=== PATIENT | female | born 1950 | race Caucasian/White ===

== ENCOUNTER 2018-03-11 18:57 | Emergency (ER) | payer MEDICARE ==
[2018-03-11 19:07] VITALS: PULSE 77
--- NOTE | 2018-03-11 19:29 | ED ---
General Adult HPI - General Chief complaint: Fall Stated complaint: Fall Time Seen by Provider: 03/11/18 19:17 Source: patient, family, EMS, RN notes reviewed Mode of arrival: EMS Limitations: no limitations - History of Present Illness Initial comments: Patient is a pleasant 68-year-old female presenting to the emergency department following a fall. Patient was Sitting half standing on a golf cart trying to hold a large flotation device. Patient did fall off the back. Low speed. Patient did strike the back of her head and did lose consciousness for between 1 and 3 minutes. Patient does complain of headache. Patient complains more of discomfort of her left small finger. No neck or back pain. No chest pain or dyspnea. No abdominal pain. Last tetanus immunization was less than 10 years ago. Patient denies taking any anticoagulants. - Related Data Home Medications Medication Instructions Recorded Confirmed HYDROmorphone [Dilaudid] 2 mg PO Q4H PRN 04/17/14 04/17/14 Previous Rx's Medication Instructions Recorded Famotidine [Pepcid] 20 mg PO BID #30 tablet 04/17/14 Metoclopramide HCl [Reglan] 10 mg PO Q6HR PRN #15 tablet 04/17/14 Allergies Allergy/AdvReac Type Severity Reaction Status Date / Time codeine Allergy Nausea & Verified 03/11/18 19:06 Vomiting Review of Systems ROS Statement: Those systems with pertinent positive or pertinent negative responses have been documented in the HPI. ROS Other: All systems not noted in ROS Statement are negative. Constitutional: Denies: fever Eyes: Denies: eye pain ENT: Denies: ear pain Respiratory: Denies: cough, dyspnea Cardiovascular: Denies: chest pain, palpitations Endocrine: Denies: fatigue Gastrointestinal: Denies: abdominal pain Genitourinary: Denies: dysuria Musculoskeletal: Denies: back pain Skin: Denies: rash Neurological: Reports: headache. Denies: weakness, confusion Past Medical History Past Medical History: Hyperlipidemia, Hypertension Additional Past Medical History / Comment(s): shingles History of Any Multi-Drug Resistant Organisms: None Reported Past Surgical History: Appendectomy, Hysterectomy Past Psychological History: No Psychological Hx Reported Smoking Status: Current some day smoker Past Alcohol Use History: None Reported Past Drug Use History: None Reported General Exam Limitations: no limitations General appearance: alert, in no apparent distress Head exam: Present: other (Laceration of posterior scalp) Eye exam: Present: normal appearance, PERRL, EOMI. Absent: nystagmus ENT exam: Present: normal oropharynx Neck exam: Present: normal inspection, full ROM. Absent: tenderness Respiratory exam: Present: normal lung sounds bilaterally Cardiovascular Exam: Present: regular rate, normal rhythm GI/Abdominal exam: Present: soft. Absent: distended, tenderness, guarding, rebound, rigid Extremities exam: Present: other (Tenderness and swelling left small finger. Patient has difficulty with full flexion secondary to discomfort.) Back exam: Present: normal inspection. Absent: tenderness, vertebral tenderness Neurological exam: Present: alert, CN II-XII intact. Absent: motor sensory deficit Expanded Neurological exam: Present: protecting the airway Speech: Present: fluid speech Cranial nerves: EOM's Intact: Normal Sensory exam: Upper Extremity Light Touch: Normal, Lower Extremity Light Touch: Normal Motor strength exam: RUE: 5, LUE: 5, RLE: 5, LLE: 5 Eye Response: (4) open spontaneously Motor Response: (6) obeys commands Verbal Response: (5) oriented Psychiatric exam: Present: normal affect, normal mood Skin exam: Present: normal color, abrasion (Posterior scalp and left small finger) Course Vital Signs 03/11/18 19:01 Temperature 98.5 F Pulse Rate 77 Respiratory 20 Rate Blood Pressure 211/95 O2 Sat by Pulse 99 Oximetry EKG Findings - EKG Comments: EKG Findings:: Sinus rhythm at 76. SC 146. QRS 94. QT 400. QTc 450. Normal axis. Normal QRS. No acute ST change. Procedures - Laceration Laceration #1 Consent Obtained: verbal consent Time Out Performed: Yes Indication: laceration Site: scalp Size (cm): 4 Depth: simple, single layer Pre-repair: wound explored, irrigated extensively Type of Sutures: other (Tabatha) Number of Sutures: 7 Patient Tolerated Procedure: well, no complications Medical Decision Making - Medical Decision Making Patient reevaluated and resting comfortably in bed. Patient still alert and oriented 3. Family states that patient did repeat questions earlier. Otherwise patient has no evidence of neurological deficit. Patient refuses Tylenol. - Radiology Data Radiology results: report reviewed (Computed tomography scan of the brain shows no acute intercranial abnormality. There is parietal scalp contusion/hematoma.) , image reviewed (X-ray does show fracture of the small finger left proximal phalanx. There is also a questionable fracture of the mid phalanx.) Disposition Clinical Impression: Fall, Laceration of scalp, Finger fracture, left, Concussion Disposition: HOME SELF-CARE Condition: Serious Instructions: Concussion (ED), Laceration (ED), Finger Fracture (ED) Additional Instructions: Please follow-up with primary care physician in 24 hours for recheck. Twice daily wash scalp with soap and water and apply antibiotic ointment. Staple removal in 7-10 days. Return for weakness, confusion, change in mental status, persistent vomiting, coordination problems, worsening symptoms or other concerns. Keep finger splint on. Follow-up with orthopedics. Is patient prescribed a controlled substance at d/c from ED?: No Referrals: Kaylene Nathan MD [Primary Care Provider] - 1-2 days Adolfo Mina MD [Medical Doctor] - 1-2 days Time of Disposition: 21:39
--- NOTE | 2018-03-11 20:00 | CT ---
EXAMINATION TYPE: CT brain wo con DATE OF EXAM: 03/11/2018 COMPARISON: 04/17/2014 HISTORY: 68-year-old female Fall and hit back of head. Pain. TECHNIQUE: Examination was done in axial plane without intravenous contrast. Coronal and sagittal r econstructions performed. CT DLP: 1192 mGycm Automated exposure control for dose reduction was used. FINDINGS: There is no evidence of acute intracranial hemorrhage, acute ischemic changes, mass, mass-effect, or extra-axial fluid collection. There is no effacement of cerebral sulci or basal subarachnoid cister ns. There is no hydrocephalus. There is no midline shift. Infante-white matter distinction is preserv ed. Moderate left parietal scalp contusion and hematoma. No underlying calvarial fracture. Moderate patchy and confluent white matter hypodensities redemonstrated in both cerebral hemispheres. Paranasal sinuses and mastoid air cells well pneumatized. Lobes are intact. IMPRESSION: Left parietal scalp contusion and hematoma. No underlying calvarial fracture or acute intracranial ab normality seen. Stable moderate burden of chronic small vessel ischemic disease.
--- NOTE | 2018-03-11 20:19 | XR ---
EXAMINATION TYPE: XR finger LT DATE OF EXAM: 03/11/2018 COMPARISON: NONE HISTORY: 68-year-old female with a pain and laceration to the fifth finger after fall TECHNIQUE: 3 views coned-down left fifth finger FINDINGS: Overlying IV catheter. A ring is present on the fourth digit. Alignment for these artifacts , there is a subtle oblique fracture at the base of the fifth proximal phalanx with 1 mm articular carreon rface remains. IMPRESSION: Overlying IV catheter limits visualization. There appears to be a subtle oblique fracture of the fift h proximal phalangeal base with 1 mm articular surface step-off.
[2018-03-11 21:50] VITALS: BP 168/84; RESP 17; TEMP 98.4
== END 2018-03-11 21:50 | disposition home or self-care (01) ==
LOC: EC 18:57
DX: S06.0X1A Concussion with loss of consciousness of 30 minutes or less, initial encounter (principal); S62.617A Displaced fracture of proximal phalanx of left little finger, initial encounter for closed fracture; S01.01XA Laceration without foreign body of scalp, initial encounter; R40.2142 Coma scale, eyes open, spontaneous, at arrival to emergency department; R40.2252 Coma scale, best verbal response, oriented, at arrival to emergency department; R40.2362 Coma scale, best motor response, obeys commands, at arrival to emergency department; F17.200 Nicotine dependence, unspecified, uncomplicated; Z88.5 Allergy status to narcotic agent; W01.198A Fall on same level from slipping, tripping and stumbling with subsequent striking against other object, initial encounter; Y92.89 Other specified places as the place of occurrence of the external cause
CPT/HCPCS: 12002; 70450; 93005; 99284